=== PATIENT | male | born 1975 | race African-American/Black ===

== ENCOUNTER 2023-02-06 10:59 | Emergency (ER) | payer SELFPAY ==
[2023-02-06] MEDS ORDERED: Docusate Sodium 100 MG/10 ML UDCUP FS SCH ×2 (12:00)
== END 2023-02-06 13:50 | disposition home or self-care (01) ==
LOC: NAV ERS 10:59
DX: H61.21 Impacted cerumen, right ear (principal); Z87.891 Personal history of nicotine dependence
CPT/HCPCS: 69209